=== PATIENT | female | born 1940 | race African-American/Black ===

== ENCOUNTER 2016-07-02 15:03 | Emergency (ER) | payer MEDICARE, MEDICAID ==
--- NOTE | 2016-07-02 16:09 | EKG REPORT ---
SEVERITY:- ABNORMAL ECG - SINUS RHYTHM MULTIPLE ATRIAL PREMATURE COMPLEXES FIRST DEGREE AV BLOCK LEFT BUNDLE BRANCH BLOCK : Confirmed by: Priyank Shaikh MD 02-Jul-2016 16:08:05
--- NOTE | 2016-07-02 16:47 | ER Document Report ---
ED Cardiac - General Chief Complaint: Chest Pain Stated Complaint: CHEST PAIN Information source: Patient Notes: 75-year-old female with past medical history as recorded who states on Sunday while she was completing dialysis she had some substernal "burning" pressure. She states it relieved almost instantaneously. She had no such problems until this morning when she states she woke with some left arm pain. She states then it radiated to her chest. She denies any nausea, vomiting, fevers, or shortness of breath. She denies any aggravating relieving factors. She denies any calf pain or leg swelling. Patient states she is recovering from a cough that she experienced recently with antibiotics prescribed by her primary doctor. TRAVEL OUTSIDE OF THE [place] IN LAST 30 DAYS: No - HPI Patient complains to provider of: Chest pain Was the onset of pain: Gradual Is the pain a: New problem Chest pain location: Other - See above Quality of pain: Other - See above Chest pain radiation location: Left arm Severity now: None Severity at worst: Mild Pain level currently: Denies Cardiac risk factors: Diabetes, + Family history Positive cardiac history: No Associated symptoms: Other - See above Exacerbated by: Denies Relieved by: Nothing Similar symptoms previously: Yes Recently seen / treated by doctor: Yes - Related Data Allergies/Adverse Reactions: atorvastatin calcium [From Lipitor] Allergy (Severe, Verified 03/08/16 10:41) cramping celecoxib [From Celebrex] Allergy (Severe, Verified 03/08/16 10:41) cramping methacholine chloride [From Provocholine] Allergy (Severe, Verified 03/08/16 10: 41) cramping rofecoxib [From Vioxx] Allergy (Severe, Verified 03/08/16 10:41) cramping cholesterol medications Allergy (Uncoded 03/08/16 10:41) cramping Past Medical History - General Information source: Patient - Social History Smoking Status: Unknown if Ever Smoked Cigarette use (# per day): No Chew tobacco use (# tins/day): No Smoking Education Provided: No Frequency of alcohol use: None Drug Abuse: None Family History: DM, Hypertension, Malignancy - Past Medical History Cardiac Medical History: Reports: Hx Congestive Heart Failure, Hx Coronary Artery Disease, Hx Hypercholesterolemia, Hx Hypertension Denies: Hx Heart Attack Pulmonary Medical History: Reports: Hx Bronchitis, Hx Pneumonia Denies: Hx Asthma, Hx COPD, Hx Tuberculosis Neurological Medical History: Denies: Hx Cerebrovascular Accident, Hx Seizures Endocrine Medical History: Reports: Hx Diabetes Mellitus Type 2 Renal/ Medical History: Reports: Hx End Stage Renal Disease. Denies: Hx Kidney Stones GI Medical History: Reports: Hx Gastroesophageal Reflux Disease, Hx Ulcer. Denies: Hx Cirrhosis Musculoskeltal Medical History: Reports Hx Arthritis, Denies Hx Multiple Sclerosis Psychiatric Medical History: Reports: Hx Depression Denies: Hx Bipolar Disorder, Hx Schizophrenia Past Surgical History: Reports: Hx Cholecystectomy, Hx Coronary Stent, Hx Hysterectomy, Hx Orthopedic Surgery - bilateral knees, Hx Tubal Ligation - Immunizations Immunizations up to date: Yes Hx Diphtheria, Pertussis, Tetanus Vaccination: No Hx Pneumococcal Vaccination: 10/28/09 Review of Systems - Review of Systems Constitutional: denies: Fever EENT: denies: Eye discharge, Nose discharge Cardiovascular: denies: Palpitations, Heart racing Respiratory: denies: Short of breath Gastrointestinal: denies: Vomiting Musculoskeletal: denies: Leg swelling Skin: Other - no hives. denies: Rash Neurological/Psychological: Other - no slurred speech -: Yes All other systems reviewed and negative Physical Exam - Vital signs Vitals: Temp Resp Pulse Ox 98.0 F 14 97 07/02/16 15:28 07/02/16 15:28 07/02/16 15:28 Interpretation: Normal Notes: Reviewed vital signs and nursing note as charted by RN. CONSTITUTIONAL: Alert and oriented and responds appropriately to questions. Well -appearing; well-nourished HEAD: Normocephalic; atraumatic CARD: Regular rate and rhythm; no murmurs, no clicks, no rubs, no gallops; symmetric distal pulses RESP: Normal chest excursion without splinting or tachypnea; breath sounds clear and equal bilaterally; tenderness to palpation of the anterior chest wall without crepitus, erythema, or induration; no wheezes, no rhonchi, no rales ABD/GI: Normal bowel sounds; non-distended; soft, very mildly tender to the epigastric region. Patient does not have a gallbladder. BACK: The back appears normal and is non-tender to palpation, there is no CVA tenderness EXT: Normal ROM in all joints; non-tender to palpation; no cyanosis, no effusions, no edema SKIN: Normal color for age and race; warm; dry; good turgor; capillary refill < 2 seconds; no acute lesions noted NEURO: Moves all extremities equally; Motor and sensory function intact PSYCH: The patient's mood and manner are appropriate. Grooming and personal hygiene are appropriate. Course - Re-evaluation Re-evalutation: 07/02/16 16:47 Given the history and physical examination we will order an EKG, cardiac panel, liver panel and lipase, and reassess the patient. Patient is oriented taken it 325 mg aspirin earlier today. Given patients H&P, vital signs, and clinical picture, I do not believe Aortic dissection or pulmonary emboli is likely at this time. EKG shows a heart of 66, normal sinus rhythm, first-degree AV block, left bundle branch block, PVCs present. Old EKG from 03/18/2016 shows a very similar EKG without the PVCs present. 07/02/16 17:31 First troponin as recorded. Second troponin is pending. Patient will be admitted to the primary care physician for further evaluation. 07/02/16 18:38 Patient still denies any pain. Patient is refusing admission. She understands the serious risks of and permanent disability. Patient is oriented 4. She will allow me to perform a repeat troponin at 7:05 PM. X-ray of the chest shows no acute change or infiltrates noted. 07/02/16 20:00 Second troponin has not change. I discussed with the patient and the family and she still would like to leave at this time. I did touch base with the covering physician bronc buster about the patient. He has been made aware. Patient has been invited to return at any time that she would like. Patient will be discharged home at this time signing the AMA forms with strict return precautions and an invitation to return any time. - Vital Signs Vital signs: Temp Pulse Resp BP Pulse Ox 98.0 F 15 154/77 H 97 07/02/16 15:28 07/02/16 18:01 07/02/16 18:01 07/02/16 18:01 - Laboratory Result Diagrams: 07/02/16 16:05 07/02/16 16:05 Laboratory results interpreted by me: 07/02/16 07/02/16 16:05 16:05 RBC 3.49 L Hgb 10.2 L Hct 32.0 L MCHC 31.9 L RDW 17.4 H BUN 32 H Creatinine 4.38 H Est GFR ( Amer) 12 L Est GFR (Non-Af Amer) 10 L Glucose 73 L AST 13 L Discharge - Discharge Clinical Impression: Chest pain Condition: Fair Disposition: AGAINST MEDICAL ADVICE Additional Instructions: Come back at any time that she would like for further evaluation and treatment. Please make sure that you follow-up expeditiously with your primary care physician as we have helped try to expedite. Sure you return immediately with any return of pain, calf pain, leg swelling, shortness of breath, fevers, or any other acute problems. Referrals: TRINITY STANTON MD [Primary Care Provider] - Follow up as needed
[2016-07-02 17:11] LABS: ABSOLUTE EOSINOPHILS # (AUTO) 0.3 10^3/uL (0.0-0.6); ABSOLUTE LYMPHOCYTES (AUTO) 1.6 10^3/uL (0.5-4.7); ABSOLUTE MONOCYTES (AUTO) 1.2 10^3/uL (0.1-1.4); ABSOLUTE NEUT (AUTO) 6.5 10^3/uL (1.7-8.2); BASOPHILS % (AUTO) 0.4 % (0-2); EOSINOPHILS % (AUTO) 2.6 % (0-6); HEMOGLOBIN 10.2 g/dL (12.0-15.5); HGB HCT DIFFERENCE -1.4; LYMPHOCYTES % (AUTO) 16.4 % (13-45); MEAN CORPUSCULAR HEMOGLOBIN 29.3 pg (27.0-33.4); MEAN CORPUSCULAR HGB CONC 31.9 g/dL (32.0-36.0); MEAN CORPUSCULAR VOLUME 92 fl (80-97); MONOCYTES % (AUTO) 12.9 % (3-13); RED BLOOD COUNT 3.49 10^6/uL (3.72-5.28); RED CELL DISTRIBUTION WIDTH 17.4 % (11.5-14.0); SEGMENTED NEUTROPHILS % (AUTO) 67.7 % (42-78); WHITE BLOOD COUNT 9.6 10^3/uL (4.0-10.5)
[2016-07-02 17:17] LABS: ALANINE AMINOTRANSFERASE 27 U/L (9-52); ALBUMIN 3.6 g/dL (3.5-5.0); ALKALINE PHOSPHATASE 92 U/L (38-126); ANION GAP 15 (5-19); ASPARTATE AMINO TRANSFERASE 13 U/L (14-36); BILIRUBIN,TOTAL 0.4 mg/dL (0.2-1.3); BLOOD UREA NITROGEN 32 mg/dL (7-20); CALCIUM 9.5 mg/dL (8.4-10.2); CARBON DIOXIDE 26 mmol/L (22-30); CHLORIDE 101 mmol/L (98-107); CREATININE RESULT 4.38 mg/dL (0.52-1.25); GLUCOSE 73 mg/dL (75-110); LIPASE 52.8 U/L (23-300); POTASSIUM 3.8 mmol/L (3.6-5.0); SODIUM 141.7 mmol/L (137-145); TOTAL PROTEIN 6.3 g/dL (6.3-8.2)
[2016-07-02 20:07] VITALS: BP 129/67
== END 2016-07-02 20:29 | disposition left against medical advice (07) ==
LOC: ER 15:03
DX: R07.9 Chest pain, unspecified (principal); M79.602 Pain in left arm; Z88.8 Allergy status to other drugs, medicaments and biological substances; I25.10 Atherosclerotic heart disease of native coronary artery without angina pectoris; I44.7 Left bundle-branch block, unspecified; I44.0 Atrioventricular block, first degree; I49.3 Ventricular premature depolarization; E11.22 Type 2 diabetes mellitus with diabetic chronic kidney disease; I12.0 Hypertensive chronic kidney disease with stage 5 chronic kidney disease or end stage renal disease; N18.6 End stage renal disease; Z99.2 Dependence on renal dialysis; Z53.20 Procedure and treatment not carried out because of patient's decision for unspecified reasons
CPT/HCPCS: 36415; 71020; 80048; 80076; 83690; 84484; 85025; 93005; 93010; 99285

== ENCOUNTER → 2016-07-20 | Outpatient (CLI) | payer MEDICARE, MEDICAID ==
[~2016-07-20] MED LIST: AMINOPHYLLINE INJ/PF 250 MG/10 ML SDV IV ONE; REGADENOSON INJ 0.4 MG/5 ML DISP.SYRIN IV ONE
--- NOTE | 2016-07-20 16:14 | DRAGON STRESS TEST REPORT ---
INTRAVENOUS LEXISCAN CARDIOLITE STRESS TEST USING SINGLE PHOTON EMMISION COMPUTERIZED TOMOGRAPHIC. DATE OF PROCEDURE: July 20, 2016 INDICATION : CAD CARDIAC RISK FACTORS: Diabetes, hypertension RESTING EKG: Sinus rhythm, left axis deviation, nonspecific T inversion V4 to V6 STRESS EKG: No significant changes noted with LexiScan bolus REASON FOR TERMINATION: Protocol. PROCEDURE REPORT: Baseline heart rate 70 beats per minute with blood pressure of 155/82. Patient had no significant complaints. Heart rate at 2 minutes post bolus 83 with a blood pressure of 133/75. 3 minutes post bolus heart rate 92 with blood pressure of 148/77. No significant EKG changes were noted. Patient had no significant complaints during the procedure or postprocedure. Patient injected with Aminophyllin 75 mg at 3 minutes or later after Lexiscan bolus. CONCLUSIONS: Normal EKG and hemodynamic response to IV LexiScan. NUCLEAR DATA: At rest the patient was given 14.76 millicuries of technetium 99 sestamibi injected intravenously. As per protocol rest gated SPECT images were obtained. Subsequently the patient was given intravenous LexiScan at a dose of 0.4 mg in 5 mL intravenously, followed by flush with normal saline. Subsequently the stress dose of 45.7 millicuries of technetium 99 sestamibi was injected intravenously. As per protocol stress gated images were obtained. NUCLEAR INTERPRETATION: Both raw and processed data were used for interpretation. Visual, qualitative, computer-generated quantitative data was used. There was good myocardial uptake of technetium compound. Motion artifact and soft tissue attenuations were noted. Increased visceral uptake was noted. Small area of mild transient perfusion defect noted involving the infra apex and distal lateral wall. SDS score was 4. No definitive areas of fixed perfusion defect or scars noted. EKG gated imaging showed LV EF at 36 %, rest and stress gated EF similar visually with mild diffuse hypokinesia and possible borderline hypokinesia of the inferoapical area. T. I D. ratio was 1.30. Lung heart ratio noted to be within normal limits 0.36. No significant extracardiac and abnormal radiotracer activities were noted. RV free wall uptake was noted to be normal. IMPRESSION: Also refer to comments under nuclear interpretation. Also test results needs to be interpreted in the context of pretest probability. 1. Small area of mild ischemia noted in the inferoapical and distal lateral wall of the left ventricle noted with pharmacologic stress test. Total area of ischemia small with SDS score of 4 2. There is no definitive scintigraphic evidence of myocardial infarction/scar. 3. EKG gated imaging shows left ejection fraction of approximately 36 % with borderline hypokinesia of inferoapical area. 4. Mild transient ischemic dilatation was noted. Clinical correlation requested as occasionally single vessel disease or balanced ischemia could be missed. In approximately 10% of the cases Lexiscan may not cause adequate vasodilatory stress. RECOMMENDATIONS: Aggressive risk factor modification, medical therapy. May consider cardiac catheterization if clinically indicated. Clinical correlation with echocardiogram derived ejection fraction. Inability to exercise by itself can lead to increased cardiovascular event risks. Consider cardiology consultation and or follow-up if clinically indicated. I AM AVAILABLE FOR CARDIOLOGY CONSULTATION AND FOLLOWUP IF REQUESTED BY PMKeri Wilson M.D., AGA [employer] strip mill operator, Board certified in cardiovascular diseases, Nuclear cardiology, Echocardiography Cardiac CT and cardiac MRI Ph. [phone] JESSICA
== END ==
LOC: RAD 09:18
PROVIDERS: ATTEND Specialist
DX: I25.118 Atherosclerotic heart disease of native coronary artery with other forms of angina pectoris (principal); E11.9 Type 2 diabetes mellitus without complications; I10 Essential (primary) hypertension
CPT/HCPCS: 93017; 78452; A9500; J2785; J0280; Q9969

== ENCOUNTER 2016-10-20 15:57 | Emergency (ER) | payer MEDICARE, OTHER ==
--- NOTE | 2016-10-20 16:43 | ER Document Report ---
ED Medical Screen (RME) - General TRAVEL OUTSIDE OF THE [place] IN LAST 30 DAYS: No - General Chief Complaint: Psych Problem Stated Complaint: SUICIDAL IDEATIONS Time Seen by Provider: 10/20/16 16:30 Notes: Patient is a 75 year old female presenting to the emergency department for suicidal ideation and depression. Patient states she has been crying all day. Patient states she felt like hurting herself this morning. Patient had recent family deaths. Patient was sent to [facility] for rehab from [facility]. Patient states she went to dialysis this morning. Patient states she thinks that she couldn't get to dialysis on Sunday so she thinks that is what caused her SI. Patient complains of a "tickle" in her throat. Patient uses C-PAP. Patient has a history of overdose, jumping off bridge, and walking in front of a car. Patient stopped taking her depression medications a few months ago; she was scared of getting addicted to the medications. Patient has lots of family here for support. (ROCK ALMODOVAR) - Related Data Allergies/Adverse Reactions: atorvastatin calcium [From Lipitor] Allergy (Severe, Verified 10/20/16 16:24) cramping celecoxib [From Celebrex] Allergy (Severe, Verified 10/20/16 16:24) cramping methacholine chloride [From Provocholine] Allergy (Severe, Verified 10/20/16 16: 24) cramping rofecoxib [From Vioxx] Allergy (Severe, Verified 10/20/16 16:24) cramping cholesterol medications Allergy (Uncoded 10/20/16 16:24) cramping Past Medical History - Past Medical History Cardiac Medical History: Reports: Hx Congestive Heart Failure, Hx Coronary Artery Disease, Hx Hypercholesterolemia, Hx Hypertension Denies: Hx Heart Attack Pulmonary Medical History: Reports: Hx Bronchitis, Hx Pneumonia Denies: Hx Asthma, Hx COPD, Hx Tuberculosis Neurological Medical History: Denies: Hx Cerebrovascular Accident, Hx Seizures Endocrine Medical History: Reports: Hx Diabetes Mellitus Type 2 Renal/ Medical History: Reports: Hx End Stage Renal Disease. Denies: Hx Kidney Stones, Hx Peritoneal Dialysis GI Medical History: Reports: Hx Gastroesophageal Reflux Disease, Hx Ulcer. Denies: Hx Cirrhosis Musculoskeltal Medical History: Reports Hx Arthritis, Denies Hx Multiple Sclerosis Psychiatric Medical History: Reports: Hx Depression Denies: Hx Bipolar Disorder, Hx Schizophrenia Past Surgical History: Reports: Hx Cholecystectomy, Hx Coronary Stent, Hx Hysterectomy, Hx Orthopedic Surgery - bilateral knees, Hx Tubal Ligation - Immunizations Immunizations up to date: Yes Hx Diphtheria, Pertussis, Tetanus Vaccination: No Physical Exam - Vital signs Vitals: Temp Pulse Resp BP Pulse Ox 99.0 F 80 20 139/92 H 95 10/20/16 16:02 10/20/16 16:02 10/20/16 16:02 10/20/16 16:02 10/20/16 16:02 - Notes Notes: GENERAL: alert, no acute distress. HEART: Regular rate and rhythm. LUNGS: Clear auscultation bilaterally. No wheezes, rhonchi, or rales. No respiratory distress. PSYCH: Sad, hopeless. (ROCK ALMODOVAR) Scribe Documentation - Scribe Written by Scribe:: Nba Chavez 10/20/16 16:46 acting as scribe for :: ARYAN
--- NOTE | 2016-10-20 17:10 | ER Document Report ---
ED Psych Disorder / Suicide - General TRAVEL OUTSIDE OF THE [place] IN LAST 30 DAYS: No - General Chief Complaint: Psych Problem Stated Complaint: SUICIDAL IDEATIONS Time Seen by Provider: 10/20/16 16:30 Notes: Patient is a 75 year old female presenting to the emergency department for suicidal ideation and depression. Patient states she has been crying all day. Patient states she felt like hurting herself this morning. Patient had recent family deaths. Patient was sent to [facility] for rehab from [facility]. Patient states she went to dialysis this morning. Patient states she thinks that she couldn't get to dialysis on Sunday so she thinks that is what caused her SI. Patient complains of a "tickle" in her throat. Patient uses C-PAP. Patient has a history of overdose, jumping off bridge, and walking in front of a car. Patient stopped taking her depression medications a few months ago; she was scared of getting addicted to the medications. Patient has lots of family here for support. (ROCK ALMODOVAR) - Related Data Allergies/Adverse Reactions: atorvastatin calcium [From Lipitor] Allergy (Severe, Verified 10/20/16 16:24) cramping celecoxib [From Celebrex] Allergy (Severe, Verified 10/20/16 16:24) cramping methacholine chloride [From Provocholine] Allergy (Severe, Verified 10/20/16 16: 24) cramping rofecoxib [From Vioxx] Allergy (Severe, Verified 10/20/16 16:24) cramping cholesterol medications Allergy (Uncoded 10/20/16 16:24) cramping Past Medical History - General Information source: Patient - Social History Smoking Status: Never Smoker Family History: DM, Hypertension, Malignancy Patient has suicidal ideation: No Patient has homicidal ideation: No - Past Medical History Cardiac Medical History: Reports: Hx Congestive Heart Failure, Hx Coronary Artery Disease, Hx Hypercholesterolemia, Hx Hypertension Pulmonary Medical History: Reports: Hx Bronchitis, Hx Pneumonia Endocrine Medical History: Reports: Hx Diabetes Mellitus Type 2 Renal/ Medical History: Reports: Hx End Stage Renal Disease GI Medical History: Reports: Hx Gastroesophageal Reflux Disease, Hx Ulcer Musculoskeltal Medical History: Reports Hx Arthritis Psychiatric Medical History: Reports: Hx Depression Past Surgical History: Reports: Hx Cholecystectomy, Hx Coronary Stent, Hx Hysterectomy, Hx Orthopedic Surgery - bilateral knees, Hx Tubal Ligation - Immunizations Immunizations up to date: Yes Hx Diphtheria, Pertussis, Tetanus Vaccination: No Hx Pneumococcal Vaccination: 10/28/09 Review of Systems - Review of Systems Constitutional: No symptoms reported EENT: No symptoms reported Cardiovascular: No symptoms reported Respiratory: No symptoms reported Gastrointestinal: No symptoms reported Genitourinary: No symptoms reported Female Genitourinary: No symptoms reported Musculoskeletal: No symptoms reported Skin: No symptoms reported Hematologic/Lymphatic: No symptoms reported Neurological/Psychological: See HPI, Depression -: Yes All other systems reviewed and negative Physical Exam - Vital signs Vitals: Temp Pulse Resp BP Pulse Ox 99.0 F 80 20 139/92 H 95 10/20/16 16:02 10/20/16 16:02 10/20/16 16:02 10/20/16 16:02 10/20/16 16:02 - Notes Notes: GENERAL: Alert, interacts well. No acute distress. HEAD: Normocephalic, atraumatic. EYES: Pupils equal, round, and reactive to light. Extraocular movements intact. ENT: Oral mucosa moist, tongue midline. NECK: Full range of motion. Supple. Trachea midline. LUNGS: Clear to auscultation bilaterally, no wheezes, rales, or rhonchi. No respiratory distress. HEART: Regular rate and rhythm. No murmurs, gallops, or rubs. ABDOMEN: Soft, non-tender. Non-distended. Bowel sounds present in all 4 quadrants. EXTREMITIES: Moves all 4 extremities spontaneously. NEUROLOGICAL: Alert and oriented x3. Normal speech. PSYCH: Sad, depressed, hopeless. SKIN: Warm, dry, normal turgor. No rashes or lesions noted. (ROCK ALMODOVAR) Course - Re-evaluation Re-evalutation: 10/20/16 17:10 Patient presents emergency department with depression. She has a chronic long- standing history of major depression states that she has been out of her medications for 3 months without taking them because she felt better. Suffers from the loss of the child at 26 years old and has never really recovered from that and significant medical problems and is a dialysis patient after dialysis today she states she does start crying uncontrollably can stop this morning when she got up she thought about wanting to hurt herself but had no plan and no longer feels that way. She has a support system at home is not suicidal or homicidal and does not need an acute threat to herself or others presently she wants to be placed back on her medication and had a psychiatric team evaluated her and they agree that she does not need to be IVCD inpatient transfer and so they are contacting Dr. José who is recommending she be discharged on Celexa and BuSpar. Patient is comfortable with this plan has secured outpatient follow -up and discussed reasons for ED return 10/20/16 17:17 10/20/16 17:21 Went to discharge the patient with a prescription for Celexa and BuSpar patient states she now remembers that she has been taking Paxil every night so I am not giving her the Celexa she continue the Paxil and give her BuSpar she is comfortable and stable to be DC'd at this point has a ride home and is not suicidal homicidal (ZOHREH BAEZA) - Vital Signs Vital signs: Temp Pulse Resp BP Pulse Ox 99.1 F 95 20 138/82 H 99 10/20/16 17:26 10/20/16 17:26 10/20/16 17:26 10/20/16 17:26 10/20/16 17:26 Discharge - Discharge Clinical Impression: Depression, Anxiety Condition: Stable Disposition: HOME, SELF-CARE Additional Instructions: Depression Your evaluation reveals that you have mental depression. While symptoms may be vague, they often include disturbance of sleep, fatigue, loss of appetite , and general loss of interest in life. While depression may be a side effect of drugs, or a reaction to a major change in your life, many cases have no known cause. If depression is acute, and related to a major loss in your life, you can expect it to clear completely with time. If you have been depressed a long time , are prone to repeated bouts of depression or low mood, or have been thinking of suicide, get help. Depression can be treated with anti-depressant medication and counselling. Long-term depression will often take a few weeks to clear, even with appropriate medication. Follow-up care is important. Contact your physician, the hospital emergency center, crisis line, or your counsellor if you are losing control or having self-destructive thoughts. follow up with your primary care physician in 2-3 days return for increasing worsening or new symptoms Prescriptions: Buspirone HCl [Buspar 10 mg Tablet] 10 mg PO QHS #12 tablet Citalopram Hydrobromide [Celexa 20 mg Tablet] 20 mg PO DAILY #12 tablet Referrals: TRINITY STANTON MD [Primary Care Provider] - Follow up as needed Scribe Attestation: 10/20/16 17:15 I personally performed the services described in the documentation reviewed the documentation recorded by my scribe in my presence and it accurately and completely records my words and actions (ZOHREH BAEZA) Scribe Documentation - Scribe Written by Trame:: Nba Chavez, 10/20/2016 1809 acting as scribe for :: ARYAN
[2016-10-20 17:34] VITALS: BP 138/82
== END 2016-10-20 17:26 | disposition home or self-care (01) ==
LOC: ER 15:57
DX: F32.9 Major depressive disorder, single episode, unspecified (principal); F41.9 Anxiety disorder, unspecified; R45.851 Suicidal ideations; I25.10 Atherosclerotic heart disease of native coronary artery without angina pectoris; E78.00 Pure hypercholesterolemia, unspecified; E11.22 Type 2 diabetes mellitus with diabetic chronic kidney disease; I50.9 Heart failure, unspecified; N18.6 End stage renal disease; I10 Essential (primary) hypertension; Z90.49 Acquired absence of other specified parts of digestive tract; Z90.710 Acquired absence of both cervix and uterus
CPT/HCPCS: 99284

== ENCOUNTER 2016-11-01 16:30 | Emergency (ER) | payer MEDICARE, MEDICAID ==
[2016-11-01] MEDS ORDERED: ASPIRIN 81 MG TABLET, CHEWABLE PO ONE (16:46)
--- NOTE | 2016-11-01 17:18 | RADIOLOGY REPORT (SQ) ---
EXAM DESCRIPTION: CHEST SINGLE VIEW COMPLETED DATE/TIME: 11/01/2016 5:05 pm REASON FOR STUDY: chest pain COMPARISON: 07/02/2016, 12/04/2015 EXAM PARAMETERS: NUMBER OF VIEWS: One view. TECHNIQUE: Single frontal radiographic view of the chest acquired. RADIATION DOSE: NA LIMITATIONS: None. FINDINGS: LUNGS AND PLEURA: No opacities, masses or pneumothorax. No pleural effusion. MEDIASTINUM AND HILAR STRUCTURES: No masses. Contour normal. HEART AND VASCULAR STRUCTURES: Stable moderate cardiomegaly BONES: No acute findings. HARDWARE: None in the chest. OTHER: No other significant finding. IMPRESSION: Stable moderate cardiomegaly TECHNICAL DOCUMENTATION: JOB ID: [id number]
[2016-11-01 17:21] LABS: ABSOLUTE BASOPHILS # (AUTO) 0.1 10^3/uL (0.0-0.2); ABSOLUTE EOSINOPHILS # (AUTO) 0.1 10^3/uL (0.0-0.6); ABSOLUTE LYMPHOCYTES (AUTO) 0.9 10^3/uL (0.5-4.7); ABSOLUTE MONOCYTES (AUTO) 1.1 10^3/uL (0.1-1.4); ABSOLUTE NEUT (AUTO) 10.8 10^3/uL (1.7-8.2); BASOPHILS % (AUTO) 0.4 % (0-2); EOSINOPHILS % (AUTO) 1.1 % (0-6); HEMATOCRIT 35.4 % (36.0-47.0); HEMOGLOBIN 11.1 g/dL (12.0-15.5); HGB HCT DIFFERENCE -2.1; MEAN CORPUSCULAR HEMOGLOBIN 28.4 pg (27.0-33.4); MEAN CORPUSCULAR HGB CONC 31.4 g/dL (32.0-36.0); MEAN CORPUSCULAR VOLUME 90 fl (80-97); MONOCYTES % (AUTO) 8.7 % (3-13); RED BLOOD COUNT 3.92 10^6/uL (3.72-5.28); RED CELL DISTRIBUTION WIDTH 17.6 % (11.5-14.0); SEGMENTED NEUTROPHILS % (AUTO) 82.8 % (42-78)
[2016-11-01 17:38] LABS: ALANINE AMINOTRANSFERASE 15 U/L (9-52); ALBUMIN 3.9 g/dL (3.5-5.0); ALKALINE PHOSPHATASE 95 U/L (38-126); ANION GAP 13 (5-19); ASPARTATE AMINO TRANSFERASE 15 U/L (14-36); BILIRUBIN,DIRECT 0.4 mg/dL (0.0-0.4); BILIRUBIN,TOTAL 0.6 mg/dL (0.2-1.3); BLOOD UREA NITROGEN 16 mg/dL (7-20); CALCIUM 8.9 mg/dL (8.4-10.2); CARBON DIOXIDE 28 mmol/L (22-30); CHLORIDE 99 mmol/L (98-107); CREATINE KINASE 43 U/L (30-135); CREATININE RESULT 2.27 mg/dL (0.52-1.25); GLUCOSE 146 mg/dL (75-110); SODIUM 140.2 mmol/L (137-145)
[2016-11-01 17:55] LABS: CREATINE KINASE MB 0.98 ng/mL (<4.55)
[2016-11-01 18:02] LABS: TROPONIN I 0.053 ng/mL
--- NOTE | 2016-11-01 18:44 | ER Document Report ---
ED Cardiac - General Information source: Patient TRAVEL OUTSIDE OF THE [place] IN LAST 30 DAYS: No - HPI Patient complains to provider of: Chest pain Chest pain radiation location: Left arm, Left shoulder Associated symptoms: Other - see above <JAY ALVARADO - Last Filed: 11/01/16 22:32> <EDMUNDO RODRIGUEZ - Last Filed: 11/02/16 04:14> - General Chief Complaint: Chest Pain Stated Complaint: CHEST PAIN Time Seen by Provider: 11/01/16 18:27 Notes: Patient is a 75 year old that presents to the ED with complaints of chest pain that started today. Patient states she was at Dialysis today and had an anxiety attack when her dialysis port was accessed. Patient is dialyzed Sunday, Sunday and Sunday. Patient denies any new SOB. Patient states she began having pain in her left arm from her dialysis port but the pain then began radiating up into her left shoulder and chest. Patient also had some nausea and vomiting. No other concerns or complaints at this time. (JAY ALVARADO) - Related Data Allergies/Adverse Reactions: atorvastatin calcium [From Lipitor] Allergy (Severe, Verified 10/20/16 16:24) cramping celecoxib [From Celebrex] Allergy (Severe, Verified 10/20/16 16:24) cramping methacholine chloride [From Provocholine] Allergy (Severe, Verified 10/20/16 16: 24) cramping rofecoxib [From Vioxx] Allergy (Severe, Verified 10/20/16 16:24) cramping cholesterol medications Allergy (Uncoded 10/20/16 16:24) cramping Past Medical History - General Information source: Patient - Social History Smoking Status: Never Smoker Chew tobacco use (# tins/day): No Frequency of alcohol use: None Drug Abuse: None Family History: DM, Hypertension, Malignancy - Past Medical History Cardiac Medical History: Reports: Hx Congestive Heart Failure, Hx Coronary Artery Disease, Hx Hypercholesterolemia, Hx Hypertension Denies: Hx Heart Attack Pulmonary Medical History: Reports: Hx Bronchitis, Hx Pneumonia Denies: Hx Asthma, Hx COPD, Hx Tuberculosis Neurological Medical History: Denies: Hx Cerebrovascular Accident, Hx Seizures Endocrine Medical History: Reports: Hx Diabetes Mellitus Type 2 Renal/ Medical History: Reports: Hx End Stage Renal Disease. Denies: Hx Kidney Stones, Hx Peritoneal Dialysis GI Medical History: Reports: Hx Gastroesophageal Reflux Disease, Hx Ulcer. Denies: Hx Cirrhosis Musculoskeltal Medical History: Reports Hx Arthritis, Denies Hx Multiple Sclerosis Psychiatric Medical History: Reports: Hx Depression Denies: Hx Bipolar Disorder, Hx Schizophrenia Past Surgical History: Reports: Hx Cholecystectomy, Hx Coronary Stent, Hx Hysterectomy, Hx Orthopedic Surgery - bilateral knees, Hx Tubal Ligation - Immunizations Immunizations up to date: Yes Hx Diphtheria, Pertussis, Tetanus Vaccination: No Hx Pneumococcal Vaccination: 10/28/09 <JAY ALVARADO - Last Filed: 11/01/16 22:32> Review of Systems - Review of Systems Constitutional: No symptoms reported EENT: No symptoms reported Cardiovascular: See HPI, Chest pain Respiratory: See HPI, Short of breath - chronic Gastrointestinal: See HPI, Nausea, Vomiting Genitourinary: No symptoms reported Female Genitourinary: No symptoms reported Musculoskeletal: No symptoms reported Skin: No symptoms reported Hematologic/Lymphatic: No symptoms reported Neurological/Psychological: See HPI, Anxiety <JAY ALVARADO - Last Filed: 11/01/16 22:32> Physical Exam - General General appearance: Appears well, Alert In distress: None - HEENT Head: Normocephalic, Atraumatic Eyes: Normal Extraocular movements intact: Yes Pupils: PERRL - Respiratory Respiratory status: No respiratory distress Chest status: Nontender Breath sounds: Normal Chest palpation: Normal - Cardiovascular Rhythm: Regular Heart sounds: Normal auscultation Murmur: No - Abdominal Inspection: Normal Distension: No distension Bowel sounds: Normal Tenderness: Nontender - Back Back: Normal - Extremities General upper extremity: Normal inspection, Other - fistula in left arm General lower extremity: Normal inspection Arm: Other - fistula in left arm - Neurological Neuro grossly intact: Yes Cognition: Normal Orientation: AAOx4 [place] Coma Scale Eye Opening: Spontaneous [place] Coma Scale Verbal: Oriented [place] Coma Scale Motor: Obeys Commands [place] Coma Scale Total: 15 Speech: Normal - Psychological Associated symptoms: Normal affect, Normal mood - Skin Skin Temperature: Warm Skin Moisture: Dry Skin Color: Normal <JAY ALVARADO - Last Filed: 11/01/16 22:32> Course - Laboratory Result Diagrams: 11/01/16 16:52 11/01/16 16:52 <JAY ALVARADO - Last Filed: 11/01/16 22:32> - Laboratory Result Diagrams: 11/01/16 16:52 11/01/16 16:52 - Diagnostic Test Radiology reviewed: Reports reviewed - EKG Interpretation by Me EKG shows normal: Sinus rhythm Rate: Normal [place]/QRS: LBBB - old <EDMUNDO RODRIGUEZ - Last Filed: 11/02/16 04:14> - Re-evaluation Re-evalutation: 11/01/16 22:05 Patient with no further chest pain in the emergency department. No changes on EKG. Patient with troponin negative 2. Will return if she has any worsening or further concerns. Follow-up with PMD this week. Stable for discharge. Patient has had her potassium replaced in the emergency department. (EDMUNDO RODRIGUEZ) - Vital Signs Vital signs: Temp Pulse Resp BP Pulse Ox 99.1 F 77 20 136/75 H 98 11/01/16 22:46 11/01/16 22:46 11/01/16 22:46 11/01/16 22:46 11/01/16 22:46 - Laboratory Laboratory results interpreted by me: 11/01/16 11/01/16 16:52 16:52 WBC 13.0 H Hgb 11.1 L Hct 35.4 L MCHC 31.4 L RDW 17.6 H Seg Neutrophils % 82.8 H Lymphocytes % 7.0 L Absolute Neutrophils 10.8 H Potassium 3.0 L* Creatinine 2.27 H Est GFR ( Amer) 25 L Est GFR (Non-Af Amer) 21 L Glucose 146 H Discharge <JAY ALVARADO - Last Filed: 11/01/16 22:32> <EDMUNDO RODRIGUEZ - Last Filed: 11/02/16 04:14> - Discharge Clinical Impression: Atypical chest pain, Hypokalemia Condition: Stable Disposition: HOME, SELF-CARE Instructions: Chest Pain of Unclear Cause ([facility]) Referrals: TRINITY STANTON MD [Primary Care Provider] - Follow up tomorrow Scribe Attestation: 11/02/16 04:14 I personally performed the services described in the documentation, reviewed and edited the documentation which was dictated to the scribe in my presence, and it accurately records my words and actions. (EDMUNDO RODRIGUEZ) Scribe Documentation - Scribe Written by Scribe:: yann Taylor, 11/01/[id number] acting as scribe for :: Sanjay <JAY ALVARADO - Last Filed: 11/01/16 22:32>
[2016-11-01] MEDS ORDERED: POTASSIUM CHLORIDE 10 MEQ TABLET.SA PO ONE (20:02)
--- NOTE | 2016-11-01 20:34 | EKG REPORT ---
SEVERITY:- ABNORMAL ECG - SINUS TACHYCARDIA LEFT BUNDLE BRANCH BLOCK : Confirmed by: Priyank Shaikh MD 01-Nov-2016 20:33:48
[2016-11-01 22:49] VITALS: BP 136/75
== END 2016-11-01 22:46 | disposition home or self-care (01) ==
LOC: ER 16:30
DX: R07.89 Other chest pain (principal); E87.6 Hypokalemia; R11.2 Nausea with vomiting, unspecified; I25.10 Atherosclerotic heart disease of native coronary artery without angina pectoris; E78.00 Pure hypercholesterolemia, unspecified; I11.0 Hypertensive heart disease with heart failure; E11.9 Type 2 diabetes mellitus without complications; E11.22 Type 2 diabetes mellitus with diabetic chronic kidney disease; I13.2 Hypertensive heart and chronic kidney disease with heart failure and with stage 5 chronic kidney disease, or end stage renal disease; I50.9 Heart failure, unspecified; N18.6 End stage renal disease; Z90.49 Acquired absence of other specified parts of digestive tract; Z90.710 Acquired absence of both cervix and uterus
CPT/HCPCS: 93005; 99285; 36415; 82553; 82550; 85025; 80053; 84484; 71010; 93010; A9270

== ENCOUNTER 2017-03-23 03:20 | Emergency (ER) | payer MEDICARE, MEDICAID ==
--- NOTE | 2017-03-23 03:55 | ER Document Report ---
ED Resuscitation - General TRAVEL OUTSIDE OF THE [place] IN LAST 30 DAYS: No <VENUS MORATAYA - Last Filed: 03/23/17 03:54> - General Mode of Arrival: Medic Information source: Emergency Med Personnel Cannot obtain history due to: Unstable vital signs - HPI Witnessed arrest: Yes Bystander CPR?: Yes Down-time before ACLS: 10:00 Onset: Just prior to arrival Symptoms prior to event: Short of breath Activity prior to event: At rest History of substance abuse: No Associated Symptoms: Chest Pain/Tightness, Shortness of Breath - Paramedics initial findings Unresponsive: Completely Respirations: No respirations Rhythm: Asystole Pulse: None - Pre-hospital treatment Treatment: Bag-valve mask, CPR/thumper <LATONIA SOLORZANO - Last Filed: 03/23/17 04:56> - General Stated Complaint: CARDIAC ARREST Time Seen by Provider: 03/23/17 03:20 - Related Data Allergies/Adverse Reactions: atorvastatin calcium [From Lipitor] Allergy (Severe, Verified 10/20/16 16:24) cramping celecoxib [From Celebrex] Allergy (Severe, Verified 10/20/16 16:24) cramping methacholine chloride [From Provocholine] Allergy (Severe, Verified 10/20/16 16: 24) cramping rofecoxib [From Vioxx] Allergy (Severe, Verified 10/20/16 16:24) cramping cholesterol medications Allergy (Uncoded 10/20/16 16:24) cramping Past Medical History - Social History Family History: DM, Hypertension, Malignancy - Past Medical History Cardiac Medical History: Reports: Hx Congestive Heart Failure, Hx Coronary Artery Disease, Hx Hypercholesterolemia, Hx Hypertension Denies: Hx Heart Attack Pulmonary Medical History: Reports: Hx Bronchitis, Hx Pneumonia Denies: Hx Asthma, Hx COPD, Hx Tuberculosis Neurological Medical History: Denies: Hx Cerebrovascular Accident, Hx Seizures Endocrine Medical History: Reports: Hx Diabetes Mellitus Type 2 Renal/ Medical History: Reports: Hx End Stage Renal Disease. Denies: Hx Kidney Stones, Hx Peritoneal Dialysis GI Medical History: Reports: Hx Gastroesophageal Reflux Disease, Hx Ulcer. Denies: Hx Cirrhosis Musculoskeltal Medical History: Reports Hx Arthritis, Denies Hx Multiple Sclerosis Psychiatric Medical History: Reports: Hx Depression Denies: Hx Bipolar Disorder, Hx Schizophrenia Past Surgical History: Reports: Hx Cholecystectomy, Hx Coronary Stent, Hx Hysterectomy, Hx Orthopedic Surgery - bilateral knees, Hx Tubal Ligation - Immunizations Immunizations up to date: Yes Hx Diphtheria, Pertussis, Tetanus Vaccination: No Hx Pneumococcal Vaccination: 10/28/09 <VENUS MORATAYA - Last Filed: 03/23/17 03:54> - General Information source: Emergency Med Personnel Cannot obtain history due to: Unstable vital signs - Social History Smoking Status: Former Smoker Past Surgical History: Reports: Hx Vascular Surgery - left arm dialysis fistula <LATONIA SOLORZANO - Last Filed: 03/23/17 04:56> Review of Systems - Review of Systems -: Yes ROS unobtainable due to patient's medical condition <LATONIA SOLORZANO - Last Filed: 03/23/17 04:56> Physical Exam <VENUS MORATAYA - Last Filed: 03/23/17 03:54> - General General appearance: Unresponsive - HEENT Head: Normocephalic, Atraumatic Pupils: Dilated, Fixed Mucous membranes: Moist - Emesis in the oral cavity. - Abdominal Distension: No distension Bowel sounds: Absent - Neurological [place] Coma Scale Eye Opening: None [place] Coma Scale Verbal: None [place] Coma Scale Motor: None [place] Coma Scale Total: 3 - Skin Skin Temperature: Warm Skin Moisture: Dry <LATONIA SOLORZANO - Last Filed: 03/23/17 04:56> - General Notes: Morbid obesity (LATONIA SOLORZANO) - Respiratory Notes: No spontaneous respirations. Patient being ventilated using bag valve mask. ( LATONIA SOLORZANO) - Cardiovascular Notes: Dialysis fistula noted to the left arm. No cardiac activity seen on bedside ultrasound, no pericardial effusion, on the monitor patient is asystole. (LATONIA SOLORZANO) - Extremities Notes: No spontaneous movement. No evidence of trauma. (LATONIA SOLORZANO) Course <VENUS MORATAYA - Last Filed: 03/23/17 03:54> <LATONIA SOLORZANO - Last Filed: 03/23/17 04:56> - Re-evaluation Re-evalutation: 03/23/17 04:50 Patient was brought in by EMS being manually ventilated with a bag valve mask, no peripheral access had been obtained, there right tibial IO had failed. Patient was completely unresponsive, apneic and asystolic, no pulses. No medications have been given. Patient is a dialysis patient who was a witnessed arrest, complained of shortness of breath in front of family and then collapsed. CPR was continued in the emergency department, multiple attempts were made to intubate the patient using both direct and video laryngoscopy but these were both unsuccessful due to edematous cords, large tongue and large amount of secretions. Ultimately a Shaun airway was inserted and adequate ventilation was obtained. Only change in rhythm was at one point the patient was in ventricular fibrillation, they were defibrillated using a biphasic defibrillator , after another round of CPR and epinephrine patient's rhythm returned to asystole. Multiple rounds of CPR and epinephrine were attempted, Accu-Chek revealed slightly elevated glucose, no change in asystole was found with bicarb or calcium. After approximately 30 minutes of CPR in the emergency department bedside ultrasound was again performed and revealed no spontaneous cardiac motion and no evidence of pericardial effusion. Resuscitation attempts were stopped and time of was declared at 03 44. Family was informed. certificate will be filled out in the emergency department. (LATONIA SOLORZANO) - Laboratory Laboratory results interpreted by me: 03/23/17 03:31 POC Glucose 220 H Procedures - Intubation Orotracheal Airway evaluation: Copious secretions, Large tongue Intubation method: Orotracheal Blade type: [place], Micheal Blade size: 4 Equipment used: Glidescope ETT size: 7.0 Intubation Complications: Oral-unsuccessful attempt, Vomited <LATONIA SOLORZANO - Last Filed: 03/23/17 04:56> Discharge <VENUS MORATAYA - Last Filed: 03/23/17 03:54> <LATONIA SOLORZANO - Last Filed: 03/23/17 04:56> - Discharge Clinical Impression: Cardiac arrest Disposition:
[2017-03-23] MEDS ORDERED: EPINEPHRINE INJ 1 MG/10 ML DISP.SYRIN ONE (13:51)
[2017-03-23] MEDS ORDERED: SODIUM BICARBONATE 8.4% INJ 50 MEQ/50 ML DISP.SYRIN ONE (13:51)
== END 2017-03-23 03:44 | disposition expired ==
LOC: ER 03:20
PROC: 0BH17EZ Insertion of Endotracheal Airway into Trachea, Via Natural or Artificial Opening (ICD-10-PCS; principal; 2017-03-23)
DX: I46.9 Cardiac arrest, cause unspecified (principal)
CPT/HCPCS: 99285; 92950; 96374; 82962; 31500; J0171; J3490